=== PATIENT | female | born 2000 | race African-American/Black ===

== ENCOUNTER 2021-03-09 17:29 | Emergency (ER) | payer OTHER ==
[2021-03-10 01:53] LABS: SARS-CoV-2 PCR by NAA Not Detected (NotDetected)
== END 2021-03-09 18:23 | disposition home or self-care (01) ==
LOC: CSHERS 17:29
DX: J02.9 Acute pharyngitis, unspecified (principal); R50.9 Fever, unspecified; R09.81 Nasal congestion; Z20.822 Contact with and (suspected) exposure to COVID-19; G40.909 Epilepsy, unspecified, not intractable, without status epilepticus
CPT/HCPCS: 87635; 99283; U0003; U0005

== ENCOUNTER 2025-11-19 04:17 | Day surgery (SDC) | payer MEDICAID ==
[2025-11-19 04:57] VITALS: BMI 42.4
[2025-11-19] MEDS ORDERED: hydrALAZINE 20 MG/ML VIAL SLOW IVP PRN (05:23)
[2025-11-19 05:49] LABS: Glucose, Urine (Dipstick) Normal (Negative); Leukocyte Negative (Negative); Protein, Urine (Dipstick) 30 mg/dl (Neg-Trace); Specific Gravity, Urine 1.020 (1.005-1.030)
[2025-11-19] MEDS: Calcium Carbonate 500 MG ChewTAB PO PRN (05:58)
[2025-11-19 06:02] LABS: Bacteria/HPF 3+ HPF (None Seen); Mucous/LPF 4+ LPF (<2+); RBC/HPF None Seen HPF (0-3); Sperm/HPF Rare HPF (None Seen)
== END 2025-11-19 14:30 | disposition home or self-care (01) ==
LOC: CSHLD/OP 04:17
PROVIDERS: ATTEND Family Medicine
DX: O47.1 False labor at or after 37 completed weeks of gestation (principal); O99.891 Other specified diseases and conditions complicating pregnancy; R30.0 Dysuria; O34.211 Maternal care for low transverse scar from previous cesarean delivery; O99.013 Anemia complicating pregnancy, third trimester; D50.9 Iron deficiency anemia, unspecified; O98.513 Other viral diseases complicating pregnancy, third trimester; B00.9 Herpesviral infection, unspecified; Z3A.38 38 weeks gestation of pregnancy; Z67.20 Type B blood, Rh positive; Z79.899 Other long term (current) drug therapy
CPT/HCPCS: 81003; 81015; J2270